=== PATIENT | male | born 1965 | race Caucasian/White ===

== ENCOUNTER 2019-08-05 09:40 | Day surgery (SDC) | payer OTHER ==
[~2019-08-05 09:40] MED LIST: Buffered Lidocaine 1% SYRIN* 1 ML/SYRINGE INTRADERM ONE; Dexamethasone IV* 4 MG/ML 1 ML (4 MG) IV SLOW PU ONE; Dexamethasone IV* 4 MG/ML 1 ML (4 MG) ONE; Famotidine IV* 10 MG/ML 2 ML (20 mg) IV ONE; Famotidine IV* 10 MG/ML 2 ML (20 mg) ONE; Lactated Ringers 1000 ML Bag* 1,000 ML IV SCH; ceFAZolin 2 GM PREMIX in ORs 2 GM/50 ML BAG ONE
[2019-08-05] MEDS ORDERED: fentaNYL* 50 MCG/ML 2 ML VIAL (100 MCG VIAL) ONE (10:44)
[2019-08-05] MEDS ORDERED: Midazolam* 1 MG/ML 5 ML VIAL (5 MG) ONE (10:44)
[2019-08-05] MEDS ORDERED: Ondansetron INJ* 2 MG/ML VIAL ONE ×2 (10:45→10:48)
[2019-08-05] MEDS ORDERED: Chloroprocaine 2%* 20 ML VIAL ONE (10:48)
[2019-08-05] MEDS ORDERED: Bupivacaine 0.5% SDV PF* 30ML VIAL ONE (11:04)
[2019-08-05] MEDS ORDERED: fentaNYL* 50 MCG/ML 2 ML VIAL (100 MCG VIAL) IV PRN (11:53)
[2019-08-05] MEDS ORDERED: oxyCODONE/Acetamin 5/325 MG* TAB PO PRN (11:53)
[2019-08-05] MEDS ORDERED: Naloxone* 0.4 MG/ML 1 ML VIAL IV PRN (11:53)
[2019-08-05] MEDS ORDERED: Ondansetron INJ* 2 MG/ML VIAL IV PRN (11:53)
[2019-08-05] MEDS ORDERED: DiMENhydriNATE IV* 50 MG/ML VIAL IV PUSH PRN (11:53)
--- NOTE | 2019-08-05 12:21 | OP ---
Operative Report - Blank - Operative Report Date of Operation: 08/05/19 Note: PATIENT: Yoshi Peace DATE OF : 1965 DATE OF SURGERY: 08/05/2019 SURGEON: Caio Beard MD MACHINE SPREADER: ROBSON Euceda, whos assistance was necessary for positioning, retraction, help with instrumentation, and closure. ANESTHESIOLOGIST: Dr. Calle PREOPERATIVE DIAGNOSIS: Right knee medial meniscus tear POSTOPERATIVE DIAGNOSIS: Right knee medial meniscus tear OPERATION: Right knee arthroscopy with partial medial meniscectomy ANESTHESIA: Spinal IMPLANTS: none TOURNIQUET TIME: Less than one hour, with a well-padded thigh tourniquet at 250 mmHg. SPECIMENS: None ESTIMATED BLOOD LOSS: minimal COMPLICATIONS: none STATUS: Stable from the operating room to the recovery room and then home. INDICATIONS FOR PROCEDURE: Yoshi has had persistent pain and mechanical symptoms from a right knee medial meniscus tear. Both operative and non operative treatment alternatives were reviewed. Further, the nature and risks of surgery were reviewed in careful detail, in the office as well as the pre-operative holding area. Our discussions regarding the risks of surgery included, but were not limited to, infection, wound problems, nerve injury, neuroma, RSD, persistent symptoms, blood clot, failure of the surgery, need for further surgery, development of arthritis, and even the remote chance of catastrophic complication. DESCRIPTION OF PROCEDURE: The patient was seen in the preoperative holding unit and informed written consent was obtained. The appropriate extremity was marked. The patient was then brought to the operating room and carefully positioned on the operating room table. Anesthesia was induced. All bony prominences were padded with great care. A well-padded thigh tourniquet was placed. A chlorhexidine based pre- scrub was performed followed by a chloraprep prep and drape in standard sterile fashion. A surgical safety pause was then conducted in which we confirmed the appropriate patient, extremity, planned procedure, availability of equipment, indication and administration of prophylactic antibiotics, and DVT prophylaxis in the form of a compression boot on the non-surgical extremity. I began with an Esmarch exsanguination of the limb and inflated the tourniquet. I insufflated the joint by injecting sterile saline. I began by making a standard anterolateral knee arthroscopy portal. The arthroscope was inserted into the knee joint and a diagnostic arthroscopy was performed. He did have some degenerative changes in the patellofemoral joint, mostly along the trochlea. He had mild degenerative changes in the medial compartment. The lateral compartment looked quite good. The lateral meniscus looked good. The posterior horn of the medial meniscus had a complex horizontal tear with a radial component. Under direct visualization an anteromedial arthroscopy portal was made. I introduced a probe into the joint. This was used to probe the medial meniscus tear. A biter and oscillating shaver were used to debride the meniscal tear back to a stable rim. I then performed an extensive irrigation of the joint while running the shaver in each of the knee compartments to remove any loose debris. Once thoroughly irrigated and debrided, I suctioned the fluid out of the joint. The arthroscopy portals were then closed utilizing 3-0 nylon. A sterile dressing was then applied. The patient was then awakened from anesthesia and transferred to the recovery room in stable condition. There were no complications. All needle and sponge counts were correct at the end of the case. ATTESTATION: I attest I was present and scrubbed and performed the critical portions of the procedure myself. POSTOPERATIVE PLAN: The plan is for weight-bearing as tolerated with crutches. Follow-up will be in 2 weeks for likely suture removal.
[2019-08-05 14:03] VITALS: BP 137/77
== END 2019-08-05 14:04 | disposition home or self-care (01) ==
LOC: OREAST 09:40
PROVIDERS: ATTEND Orthopaedic Surgery
DX: S83.241A Other tear of medial meniscus, current injury, right knee, initial encounter (principal); X58.XXXA Exposure to other specified factors, initial encounter; Y92.79 Other farm location as the place of occurrence of the external cause; Y99.0 Civilian activity done for income or pay; I10 Essential (primary) hypertension; M19.90 Unspecified osteoarthritis, unspecified site
CPT/HCPCS: J0690; J1100; J2250; J2400; J2405; J3010; J3490

== ENCOUNTER 2019-08-10 12:21 | Emergency (ER) | payer OTHER ==
--- NOTE | 2019-08-10 12:45 | ED ---
Lower Extremity - HPI Summary HPI Summary: Pt is a 53 y/o M presenting to the ED with a chief complaint of L knee pain. The pt states he had arthroscopic surgery on the R knee on 08/05/19, and a couple of days later, on 08/08/19, he developed pain in the L knee. It is in the middle and radiates to the back of the knee. He denies CP or SOB. - History of Current Complaint Chief Complaint: EDExtremityLower Stated Complaint: LEFT LEG SWOLLEN PER PT Time Seen by Provider: 08/10/19 12:31 Hx Obtained From: Patient Mechanism Of Injury: Unknown Onset of Pain: Days Onset/Duration: Still Present Severity Initially: Mild Severity Currently: Mild Pain Intensity: 2 Pain Scale Used: 0-10 Numeric Timing: Constant, Lasting Days Location: Is Discrete @ - L knee Associated Signs And Symptoms: Positive: Knee Pain Aggravating Factor(s): Nothing Alleviating Factor(s): Nothing Able to Bear Weight: Yes - Allergies/Home Medications Allergies/Adverse Reactions: Allergies Allergy/AdvReac Type Severity Reaction Status Date / Time No Known Allergies Allergy Verified 08/10/19 12:27 PMH/Surg Hx/FS Hx/Imm Hx Previously Healthy: Yes Endocrine/Hematology History: Denies: Hx Diabetes, Hx Thyroid Disease Cardiovascular History: Reports: Hx Hypertension Denies: Hx Pacemaker/ICD Respiratory History: Denies: Hx Asthma History: Denies: Hx Renal Disease Musculoskeletal History: Reports: Hx Arthritis Sensory History: Reports: Hx Contacts or Glasses - reading glasses sometimes Denies: Hx Hearing Aid Opthamlomology History: Reports: Hx Contacts or Glasses - reading glasses sometimes Psychiatric History: Denies: Hx Panic Disorder - Cancer History Hx Chemotherapy: No - Surgical History Surgery Procedure, Year, and Place: LEFT KNEE SURGERY. APPENDIX. TONSILS Hx Anesthesia Reactions: No Infectious Disease History: No Infectious Disease History: Denies: Hx Clostridium Difficile, Hx Hepatitis, Hx Human Immunodeficiency Virus (HIV), Hx of Known/Suspected MRSA, Hx Shingles, Hx Tuberculosis, Hx Known/ Suspected VRE, Hx Known/Suspected VRSA, History Other Infectious Disease, Traveled Outside the [place] in Last 30 Days - Family History Known Family History: Positive: Cardiac Disease - father [place] @ 85 Negative: Blood Disorder - Social History Occupation: Employed Full-time Alcohol Use: Occasionally Alcohol Amount: 12 beers Hx Substance Use: No Substance Use Type: Reports: None Hx Tobacco Use: Yes Smoking Status (MU): Former Smoker Amount Used/How Often: 20+ yearschew tobacco Have You Smoked in the Last Year: No Review of Systems Negative: Chest Pain Negative: Shortness Of Breath Positive: Arthralgia - L knee pain All Other Systems Reviewed And Are Negative: Yes Physical Exam - Summary Physical Exam Summary: Constitutional: Well-developed, Well-nourished, Alert. (-) Distressed Skin: Warm, Dry HENT: Normocephalic; Atraumatic Eyes: Conjunctiva normal Neck: Musculoskeletal ROM normal neck. (-) JVD, (-) Stridor, (-) Tracheal deviation Cardio: Rhythm regular, rate normal, Heart sounds normal; Intact distal pulses; Radial pulses are 2+ and symmetric. (-) Murmur Pulmonary/Chest wall: Effort normal. (-) Respiratory distress, (-) Wheezes, (-) Rales Abd: Soft, (-) tenderness, (-) Distension, (-) Guarding, (-) Rebound Musculoskeletal: (-) Edema Lymph: (-) Cervical adenopathy Neuro: Alert, Oriented x3 Psych: Mood and affect Normal Triage Information Reviewed: Yes Vital Signs On Initial Exam: Initial Vitals Temp Pulse Resp BP Pulse Ox 97.1 F 77 16 146/88 96 08/10/19 12:24 08/10/19 12:24 08/10/19 12:24 08/10/19 12:24 08/10/19 12:24 Vital Signs Reviewed: Yes Procedures - Sedation Patient Received Moderate/Deep Sedation with Procedure: No Diagnostics - Vital Signs Vital Signs Temp Pulse Resp BP Pulse Ox 08/10/19 12:24 97.1 F 77 16 146/88 96 - Laboratory Result Diagrams: 08/10/19 12:48 08/10/19 12:48 Lab Statement: Any lab studies that have been ordered have been reviewed, and results considered in the medical decision making process. - Ultrasound DVT US Ultrasound Interpretation Completed By: Radiologist Summary of Ultrasound Findings: No left lower extremity deep vein thrombosis. ED physician has reviewed this report. Lower Extremity Course/Dx - Course Assessment/Plan: Patient is here with left leg swelling following procedure on Thursday. Patient had negative ultrasound for DVT. Patient has no other emergent pathology and was discharged. - Diagnoses Provider Diagnoses: Pain and swelling of left lower extremity Discharge ED - Sign-Out/Discharge Documenting (check all that apply): Patient Departure - Discharge Plan Condition: Stable Disposition: HOME Patient Education Materials: Knee Pain (ED), Arthralgia (ED) Referrals: Kt Carmichael MD [Medical Doctor] - Additional Instructions: Please follow up with your primary care provider within the next 1-3 days. Return to the emergency department with any new or worsening symptoms. - Billing Disposition and Condition Condition: STABLE Disposition: Home - Attestation Statements Document Initiated by Kelvin: Yes Documenting Scribe: Naida León Provider For Whom Kelvin is Documenting (Include Credential): Ethan Simpson MD. Scribe Attestation: Naida Augustine scribed for Ethan Simpson MD. on 08/10/19 at 1444. Scribe Documentation Reviewed: Yes Provider Attestation: The documentation as recorded by the manavibeNaida accurately reflects the service I personally performed and the decisions made by Ethan kruse MD. Status of Scribe Document: Viewed
[2019-08-10 12:56] LABS: ABS Basophils 0.1 10^3/ul (0-0.2); ABS Eosinophils 0.3 10^3/ul (0-0.6); ABS Lymphocytes 2.5 10^3/ul (1.0-4.8); ABS Neutrophils 4.6 10^3/ul (1.5-7.7); Eosinophil % 3.4 %; Hematocrit 44 % (42-52); Hemoglobin 14.9 g/dL (14.0-18.0); Lymphocyte % 29.4 %; Mean Corpuscular HGB Conc 34 g/dL (31-36); Mean Corpuscular Hemoglobin 30 pg (27-31); Mean Corpuscular Volume 90 fL (80-94); Nucleated Red Blood Cells % 0.1; Platelet Count 278 10^3/uL (150-450); Red Blood Count 4.92 10^6 /uL (4.18-5.48); Red Cell Distribution Width 14 % (10-15); White Blood Count 8.5 10^3/uL (3.5-10.8)
[2019-08-10 13:15] LABS: Albumin 4.6 g/dL (3.2-5.2); Albumin/Globulin Ratio 1.8 (1-3); BUN/Creatinine Ratio 16.8 (8-20); Calcium 9.5 mg/dL (8.6-10.3); EGFR African American 100.7 (>60); EGFR Non-African American 83.3 (>60); Globulin 2.5 g/dL (2-4); Potassium 3.9 mmol/L (3.5-5.0); Total Bilirubin 0.6 mg/dL (0.2-1.0); Total Protein 7.1 g/dL (6.4-8.9)
--- OUTSIDE RECORDS SUMMARY | 2019-08-10 13:42 | XMS REPORT | Continuity of Care Document ---
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 Problems Description No Information Available Social History Type Date Description Comments Sex Unknown Tobacco Use Start: Unknown Never Smoked Cigarettes ETOH Use Occasionally consumes alcohol Tobacco Use Start: Unknown Patient has never smoked Recreational Drug Use Denies Drug Use Exercise Type/Frequency Exercises regularly Allergies, Adverse Reactions, Alerts Description No Known Drug Allergies Medications Active Medications SIG Qnty Indications Ordering Provider Date Losartan 1 by mouth every Unknown Potassium/Hydrochlorot day hiazide 50-12.5mg Tablets Nifedipine take one capsule Unknown 10mg Capsules daily by mouth Immunizations Description No Information Available Vital Signs Date Vital Result Comment 07/05/2019 9:09am Height 75.5 inches 6'3.50" Weight 245.00 lb Heart Rate 65 /min BP Systolic Sitting 134 mmHg BP Diastolic Sitting 76 mmHg Body Temperature 98.6 F Pain Level 3 O2 % BldC Oximetry 98 % BMI (Body Mass Index) 30.2 kg/m2 Results Description No Information Available Procedures Description No Information Available Medical Devices Description No Information Available Encounters Type Date Location Provider Dx Diagnosis Office Visit 07/05/2019 [facility] Mohan Mckeon, M23.91 Unspecified 9:00a [facility] derangement of right knee Assessments Date Code Description Provider 07/05/2019 M23.91 Unspecified internal derangement of right knee Mohan Mckeon MD Plan of Treatment 07/05/2019 - Mohan Mckeon MDM23.91 Unspecified internal derangement of right kneeNew Xrays:MRI Knee Right W/O, Ordered: 07/05/19Comments:home exercises sheetsFollow up:Follow up: after testing is completed Functional Status Description No Information Available Mental Status Description No Information Available Referrals Description No Information Available
--- OUTSIDE RECORDS SUMMARY | 2019-08-10 13:42 | XMS REPORT | Continuity of Care Document ---
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 Problems Description No Information Available Social History Type Date Description Comments Sex Unknown Tobacco Use Start: Unknown Never Smoked Cigarettes ETOH Use Occasionally consumes alcohol Tobacco Use Start: Unknown Patient has never smoked Recreational Drug Use Denies Drug Use Smoking Status Reviewed: 07/21/19 Patient has never smoked Exercise Type/Frequency Exercises regularly Allergies, Adverse Reactions, Alerts Description No Known Drug Allergies Medications Active Medications SIG Qnty Indications Ordering Provider Date Losartan 1 by mouth every Unknown Potassium/Hydrochlorot day hiazide 50-12.5mg Tablets Nifedipine take one capsule Unknown 10mg Capsules daily by mouth Immunizations Description No Information Available Vital Signs Date Vital Result Comment 07/21/2019 11:16am Height 75.5 inches 6'3.50" Weight 245.00 lb Heart Rate 67 /min BP Systolic Sitting 140 mmHg BP Diastolic Sitting 96 mmHg Respiratory Rate 12 /min Pain Level 1 O2 % BldC Oximetry 95 % BMI (Body Mass Index) 30.2 kg/m2 07/05/2019 9:09am Height 75.5 inches 6'3.50" Weight 245.00 lb Heart Rate 65 /min BP Systolic Sitting 134 mmHg BP Diastolic Sitting 76 mmHg Body Temperature 98.6 F Pain Level 3 O2 % BldC Oximetry 98 % BMI (Body Mass Index) 30.2 kg/m2 Results Description No Information Available Procedures Date Code Description Status 07/05/2019 51350 Xray Knee 3 Views Completed Medical Devices Description No Information Available Encounters Type Date Location Provider Dx Diagnosis Office Visit 07/05/2019 [facility] Mohan Mckeon, M23.91 Unspecified 9:00a at [facility] internal derangement of right knee M25.561 Pain in right knee Assessments Date Code Description Provider 07/05/2019 M23.91 Unspecified internal derangement of right knee Mohan Mckeon MD 07/05/2019 M25.561 Pain in right knee Mohan Mckeon MD Plan of Treatment Future Appointment(s):07/25/2019 1:00 pm - Caio Beard MD at [facility] at [place] Functional Status Description No Information Available Mental Status Description No Information Available Referrals Description No Information Available
--- OUTSIDE RECORDS SUMMARY | 2019-08-10 13:42 | XMS REPORT | Continuity of Care Document ---
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 Problems Active Problems Provider Date Current tear of medial cartilage AND/OR meniscus Caio Beard MD Onset: of knee Social History Type Date Description Comments Sex Unknown Tobacco Use Start: Unknown Never Smoked Cigarettes ETOH Use Occasionally consumes alcohol Tobacco Use Start: Unknown Patient has never smoked Recreational Drug Use Denies Drug Use Smoking Status Reviewed: 07/25/19 Patient has never smoked Exercise Type/Frequency Exercises regularly Allergies, Adverse Reactions, Alerts Description No Known Drug Allergies Medications Active Medications SIG Qnty Indications Ordering Provider Date Losartan 1 by mouth every Unknown Potassium/Hydrochlorot day hiazide 50-12.5mg Tablets Nifedipine take one capsule Unknown 10mg Capsules daily by mouth Immunizations Description No Information Available Vital Signs Date Vital Result Comment 07/25/2019 1:50pm Height 75.5 inches 6'3.50" Weight 251.00 lb Heart Rate 55 /min BP Systolic 138 mmHg BP Diastolic 72 mmHg Respiratory Rate 16 /min Body Temperature 97.0 F Pain Level 2 BMI (Body Mass Index) 31.0 kg/m2 07/21/2019 11:16am Height 75.5 inches 6'3.50" Weight 245.00 lb Heart Rate 67 /min BP Systolic Sitting 140 mmHg BP Diastolic Sitting 96 mmHg Respiratory Rate 12 /min Pain Level 1 O2 % BldC Oximetry 95 % BMI (Body Mass Index) 30.2 kg/m2 Results Description No Information Available Procedures Date Code Description Status 07/05/2019 39402 Xray Knee 3 Views Completed Medical Devices Description No Information Available Encounters Type Date Location Provider Dx Diagnosis Office Visit 07/21/2019 [facility] Mohna Mckeon, S83.241D Oth tear of 11:15a at [place] medial meniscus, current injury, r knee, subs M25.461 Effusion, right knee Office Visit 07/05/2019 9:00a [facility] Mohan Garcia M23.91 Unspecified at [facility] Mckeon MD internal derangement of right knee M25.561 Pain in right knee Assessments Date Code Description Provider 07/25/2019 S83.221A Peripheral tear of medial meniscus, current Caio Beard MD injury, right knee, initial encounter 07/21/2019 S83.241D Other tear of medial meniscus, current injury, Mohan Mckeon MD right knee, subsequent encounter 07/21/2019 M25.461 Effusion, right knee Mohan Mckeon MD 07/05/2019 M23.91 Unspecified internal derangement of right knee Mohan Mckeon MD 07/05/2019 M25.561 Pain in right knee Mohan Mckeon MD Plan of Treatment Future Appointment(s):08/19/2019 11:15 am - Caio Beard MD at [facility] [place]/25/2019 - Caio Beard MDS83.221A Peripheral tear of medial meniscus, current injury, right knee, initial encounterFollow up:Follow Up: 13-15 days postop Functional Status Description No Information Available Mental Status Description No Information Available Referrals Description No Information Available
[2019-08-10 13:50] VITALS: BP 127/83
== END 2019-08-10 13:48 | disposition home or self-care (01) ==
LOC: ED 12:21
DX: M25.562 Pain in left knee (principal); M25.462 Effusion, left knee; M79.89 Other specified soft tissue disorders; I10 Essential (primary) hypertension; Z87.891 Personal history of nicotine dependence; Z79.899 Other long term (current) drug therapy
CPT/HCPCS: 36415; 80053; 85025; 99282